=== PATIENT | female | born 1955 | race Caucasian/White ===

== ENCOUNTER 2017-12-13 10:37 | Day surgery (SDC) | payer OTHER ==
[2017-12-13] MEDS: CEFAZOLIN 2 GM/50 ML (PMX) 50 ML IVPB (11:00)
[2017-12-13] MEDS: SOD CHLORIDE 0.9% 1,000 ML IV (11:00)
[2017-12-13] MEDS ORDERED: ONDANSETRON 4 MG INJ (13:15)
[2017-12-13] MEDS ORDERED: ROCURONIUM 50 MG INJ (13:15)
[2017-12-13] MEDS ORDERED: GLYCOPYRROLATE 0.4 MG INJ (13:15)
[2017-12-13] MEDS ORDERED: NEOSTIGMINE 3 MG/3 ML SYRINGE (13:15)
[2017-12-13] MEDS ORDERED: FENTAnyl 50 MCG/ML VIAL (13:15)
[2017-12-13] MEDS ORDERED: MIDAZOLAM 1 MG/ML 2 ML INJ (13:15)
[2017-12-13] MEDS ORDERED: PROPOFOL 20 ML (13:15)
[2017-12-13] MEDS ORDERED: CEFAZOLIN 1 GM INJ (13:15)
[2017-12-13] MEDS ORDERED: DEXAMETHASONE 4 MG/ML 1 ML INJ (13:16)
[2017-12-13] MEDS: BUPIVACAINE 0.25% (MPF) 30 ML INJ (14:15)
[2017-12-13] MEDS ORDERED: hydrALAzine 20 MG INJ IV (14:30)
[2017-12-13] MEDS ORDERED: MEPERIDINE 25 MG INJ IV (14:30)
[2017-12-13] MEDS ORDERED: DIPHENHYDRAMINE 50 MG INJ IV (14:30)
[2017-12-13] MEDS ORDERED: HYDROmorphONE 1 MG/5 ML IV SYRINGE IV ×3 (14:30)
[2017-12-13] MEDS ORDERED: ONDANSETRON 4 MG INJ IV ×2 (14:30→15:00)
[2017-12-13] MEDS ORDERED: TRIMETHOBENZAMIDE 100 MG/ML VIAL IM (14:30)
[2017-12-13] MEDS ORDERED: ALBUTEROL 0.083% (NEB) 2.5 MG/3 ML AMP HHN (14:30)
[2017-12-13] MEDS ORDERED: EPHEDrine SULFATE 50 MG/5 ML SYG IV (14:30)
[2017-12-13] MEDS ORDERED: OXYCODONE/ACETAMINOPHEN (5/325) TAB PO (14:30)
[2017-12-13] MEDS ORDERED: LABETALOL HCL 20MG INJ IV (14:30)
[2017-12-13] MEDS ORDERED: MIDAZOLAM 1 MG/ML 2 ML INJ IV (14:30)
[2017-12-13] MEDS ORDERED: IPRATROPIUM (NEB) 0.5 MG/2.5 ML AMP HHN (14:30)
[2017-12-13] MEDS ORDERED: FENTAnyl 50 MCG/ML VIAL IV ×2 (14:30)
[2017-12-13] MEDS ORDERED: METOCLOPRAMIDE 10 MG INJ (14:54)
[2017-12-13] MEDS ORDERED: IBUPROFEN 600 MG TAB PO (15:00)
[2017-12-13] MEDS ORDERED: HYDROCODONE/APAP (5/325) TAB PO (15:00)
[2017-12-13] MEDS ORDERED: morphine 2 MG INJ IV (15:00)
[2017-12-13] MEDS: FENTAnyl 50 MCG/ML VIAL IV ×2 (15:31→15:52)
[2017-12-13] MEDS: OXYCODONE/ACETAMINOPHEN (5/325) TAB PO (16:39)
== END 2017-12-13 17:20 | disposition home or self-care (01) ==
LOC: SDS 10:37
DX: K81.1 Chronic cholecystitis (principal)
CPT/HCPCS: 47562; 88304